=== PATIENT | male | born 1945 ===

== ENCOUNTER 2017-08-07 11:10 | Outpatient (CLI) | payer OTHER ==
[~2017-08-07] VITALS: Ht 33 cm; Wt 0.5 kg
[~2017-08-07 11:10] MED LIST: ceFAZolin sod 1 GM in D5W 55 ML IVP ONE; celeBREX 200mg Cap **SURGERY PATIENTS ONLY ORAL ONE; oxyCONTIN 20mg tab ORAL ONE
== END 2017-08-07 13:10 | disposition home or self-care (01) ==
LOC: LAB 11:10 → SDSOVERFLO 11:18 → UNDOADMIN 11:18 → EDSTATUS 12:30 → LAB 13:10 → UNDODISIN 14:00
DX: Z01.812 Encounter for preprocedural laboratory examination (principal); M17.12 Unilateral primary osteoarthritis, left knee
CPT/HCPCS: 82962